=== PATIENT | male | born 1960 | race Caucasian/White ===

== ENCOUNTER → 2020-08-04 | Outpatient (CLI) | payer OTHER ==
[~2020-08-04] MED LIST: AMLO-211 PO; LOSA50TA14 PO; MELO15TA24 PO
[2020-08-04 12:17] LABS: INTERNATIONAL NORMALIZED RATIO 1.04 (0.93-1.1)
[2020-08-04 12:20] LABS: ALBUMIN 4.3 g/dL (3.4-5.0); ANION GAP 3 mmol/L (5-15); CHLORIDE 108 mmol/L (98-107)
[2020-08-04 12:24] LABS: ALANINE AMINOTRANSFERASE 22 U/L (12-78); ALKALINE PHOSPHATASE 61 U/L (45-117); BILIRUBIN,TOTAL 0.9 mg/dL (0.2-1.0); CREATININE 1.16 mg/dL (0.7-1.3); TOTAL PROTEIN 7.7 g/dL (6.4-8.2)
[2020-08-04 12:34] LABS: BASOPHILS % (AUTO) 1 % (0-1); EOSINOPHILS % (AUTO) 1 % (1-7); LYMPHOCYTES % (AUTO) 27 % (22-44); MEAN CORPUSCULAR HEMOGLOBIN 30.4 pg (27.5-34.5); MEAN CORPUSCULAR HGB CONC 33.4 g/dL (33.2-36.2); MEAN PLATELET VOLUME 8.7 fL (7.4-10.4); MONOCYTES % (AUTO) 15 % (2-9); NEUTROPHILS % (AUTO) 55 % (42-75); PLATELET COUNT 229 x10^3/uL (130-400); RED BLOOD COUNT 4.99 x10^6/uL (4.38-5.82); RED CELL DISTRIBUTION WIDTH 12.9 % (9.4-14.8)
[2020-08-04 12:37] LABS: MD SCAN
== END | disposition home or self-care (01) ==
LOC: STAR 10:33
PROVIDERS: ATTEND Orthopaedic Surgery
DX: Z01.812 Encounter for preprocedural laboratory examination (principal); Z20.828 Contact with and (suspected) exposure to other viral communicable diseases; M17.11 Unilateral primary osteoarthritis, right knee; R94.31 Abnormal electrocardiogram [ECG] [EKG]
CPT/HCPCS: 80053; 83036; 85025; 85610; 85730; 87081; 87147; 87635; 87806; 93005; G0475

== ENCOUNTER 2020-08-09 10:30 | Observation (INO) | payer OTHER ==
[~2020-08-09] VITALS: Ht 172.7 cm; Wt 91.1 kg
[~2020-08-09 10:30] MED LIST changes: +EPHEDRINE 50 MG/ML, 1ML IVPush PRN; +FENTANYL PF 100 MCG/2ML IV PRN; +HYDROmorphone 1 MG/ML, 1ML INJ IVPush PRN; +KETOROLAC 60 MG/2 ML ONE; +LABETALOL 5MG/ML, 20ML IV PRN; +MEPERIDINE/PF 25MG/0.5ML IVPush PRN; +ONDANSETRON 2MG/ML, 2ML IVPush PRN; +OXYcodone 5 MG/5 ML ORAL.SOL UDC PO PRN; +PROMETHAZINE 25 MG/ML, 1ML IVPush PRN; +ROPIvacaine/PF 0.2%, 20 ML ONE; +SODIUM CHLORIDE 0.9% 50 ML ONE; +TRANEXAMIC ACID 100 MG/ML, 10ML ONE; +hydrALAzine 20 MG/ML, 1ML IV PRN
[2020-08-09] MEDS ORDERED: CHLORHEXIDINE 15 ML UDC MM STA (10:52)
[2020-08-09] MEDS ORDERED: LACTATED RINGERS 1,000 ML IV SCH (10:52)
[2020-08-09] MEDS ORDERED: ACETAMINOPHEN 500 MG TABLET PO STA (10:53)
[2020-08-09] MEDS ORDERED: GABAPENTIN 300 MG CAPSULE PO STA (10:54)
[2020-08-09] MEDS ORDERED: MIDAZOLAM 1 MG/ML, 2ML ONE (11:34)
[2020-08-09] MEDS ORDERED: FENTANYL PF 250 MCG/5ML ONE (11:34)
[2020-08-09] MEDS ORDERED: BUPIVACAINE/PF 0.5% ONE (11:36)
[2020-08-09] MEDS ORDERED: ONDANSETRON 4 MG TABLET PO PRN (13:00)
[2020-08-09] MEDS ORDERED: PSYLLIUM PACKET PO PRN (13:00)
[2020-08-09] MEDS ORDERED: DIPHENHYDRAMINE 50 MG CAPSULE PO PRN (13:00)
[2020-08-09] MEDS ORDERED: HYDROmorphone 1 MG/ML, 1ML INJ IVPush PRN (13:00)
[2020-08-09] MEDS ORDERED: SENNA/DOCUSATE TABLET PO PRN (13:00)
[2020-08-09] MEDS ORDERED: DIPHENHYDRAMINE 50 MG/ML, 1ML IVPush PRN (13:00)
[2020-08-09] MEDS ORDERED: ALUMINUM/MAG/SIMETHICONE 30 ML UDC PO PRN (13:00)
[2020-08-09] MEDS ORDERED: POLYETHYLENE GLYCOL 17 GM PACKET PO PRN (13:00)
[2020-08-09] MEDS ORDERED: METOCLOPRAMIDE 5 MG/ML, 2ML IVPush PRN (13:00)
[2020-08-09] MEDS ORDERED: DEXAMETHASONE 4 MG/ML, 1ML IVPush SCH (13:00)
[2020-08-09] MEDS ORDERED: TRANEXAMIC ACID 1,000 MG in SODIUM CHLORIDE 0.9% 100 ML IVPB ONE (13:00)
[2020-08-09] MEDS ORDERED: PROMETHAZINE 12.5 MG SUPP PR PRN (13:00)
[2020-08-09] MEDS ORDERED: MAGNESIUM HYDROXIDE 8%, 30ML UDC PO PRN (13:00)
[2020-08-09] MEDS ORDERED: ACETAMINOPHEN 650 MG/20.3 ML UDC PO PRN (13:00)
[2020-08-09] MEDS ORDERED: ONDANSETRON 2MG/ML, 2ML IVPush PRN (13:00)
[2020-08-09] MEDS ORDERED: PROPOFOL 10 MG/ML, 20ML ONE (13:18)
[2020-08-09] MEDS ORDERED: DEXAMETHASONE 4 MG/ML, 1ML ONE (13:18)
[2020-08-09] MEDS ORDERED: CEFAZOLIN 1,000 MG ONE (13:18)
[2020-08-09] MEDS ORDERED: ONDANSETRON 2MG/ML, 2ML ONE (13:18)
[2020-08-09] MEDS ORDERED: GLYCOPYRROLATE 0.2MG/1ML, 5ML ONE (13:22)
[2020-08-09] MEDS ORDERED: EPINEPHRINE 1 MG/ML, 1ML INFIL ONE (13:23)
[2020-08-09] MEDS ORDERED: SODIUM CHLORIDE 0.9% PF 10ML ONE (13:23)
[2020-08-09] MEDS ORDERED: FENTANYL PF 100 MCG/2ML ONE (14:39)
[2020-08-09] MEDS: ACETAMINOPHEN 325 MG TABLET PO SCH ×2 (17:19→21:18)
[2020-08-09] MEDS: POTASSIUM CHLORIDE 20 MEQ in D5%-0.45% NACL 1,000 ML IV SCH ×2 (17:42→23:06)
[2020-08-09] MEDS ORDERED: ASPIRIN 81 MG TABLET EC PO SCH (18:00)
[2020-08-09 20:35] VITALS: BP 139/85
[2020-08-09] MEDS: DOCUSATE 100 MG CAPSULE PO SCH (21:18)
[2020-08-09] MEDS: KETOROLAC 30 MG/1 ML IV SCH (21:19)
[2020-08-09] MEDS: OXYcodone IR 5MG TABLET PO PRN (21:19)
[2020-08-09] MEDS: CEFAZOLIN PMX 1GM/50ML 50 ML IVPB SCH (21:52)
[2020-08-10 00:19] VITALS: BP 110/68
[2020-08-10] MEDS: OXYcodone IR 5MG TABLET PO PRN ×2 (01:11→05:06)
[2020-08-10] MEDS: ACETAMINOPHEN 325 MG TABLET PO SCH ×4 (01:12→12:55)
[2020-08-10 05:04] VITALS: BP 124/84
[2020-08-10] MEDS: CEFAZOLIN PMX 1GM/50ML 50 ML IVPB SCH (05:06)
[2020-08-10] MEDS: KETOROLAC 30 MG/1 ML IV SCH ×2 (05:06→12:55)
[2020-08-10] MEDS ORDERED: ASPIRIN 81 MG TABLET EC PO SCH (06:00)
[2020-08-10 08:28] VITALS: BP 125/74
[2020-08-10] MEDS: DOCUSATE 100 MG CAPSULE PO SCH (08:31)
[2020-08-10] MEDS: POTASSIUM CHLORIDE 20 MEQ in D5%-0.45% NACL 1,000 ML IV SCH (08:32)
[2020-08-10] MEDS ORDERED: LOSARTAN 50MG TABLET PO SCH (09:00)
[2020-08-10] MEDS ORDERED: AMLODIPINE 5 MG TABLET PO SCH (09:00)
[2020-08-10 14:25] VITALS: BP 105/62
== END 2020-08-10 15:24 | disposition home or self-care (01) ==
LOC: OUT 10:30 → 2NW 15:10 → OUT 19:24 → DCLOUNGE 08-10 15:16
PROVIDERS: ADMIT Orthopaedic Surgery; ATTEND Orthopaedic Surgery
DX: M17.11 Unilateral primary osteoarthritis, right knee (principal); M71.21 Synovial cyst of popliteal space [Baker], right knee; I10 Essential (primary) hypertension; Z79.899 Other long term (current) drug therapy
CPT/HCPCS: 27447; 36415; 73560; 85014; 85018; 96361; 96365; 96366; 96375; 96376; 97110; 97161; C1776; G0378; J0171; J0690; J1100; J1885; J2250; J2405; J2704; J2795; J3010; J3480; J7120; S0020